=== PATIENT | female | born 1975 | race Caucasian/White ===

== ENCOUNTER 2020-03-25 18:56 | Emergency (ER) | payer MEDICAID, OTHER ==
[~2020-03-25] VITALS: Ht 160 cm; Wt 72.6 kg
[2020-03-25 19:00] VITALS: BP 132/84
--- NOTE | 2020-03-25 19:18 | NUR ---
PT TAKEN TO BED 11
--- NOTE | 2020-03-25 19:24 | NUR ---
PT COMING IN TODAY WITH COMPLAINT OF HEADACHE TODAY, HEADACHE IS GONE NOW BUT CURRENTLY HAS TINGLING TO HER FACE. + NAUSEA NO VOMITING. A/O X4, PUPILS EQUAL AND REACTIVE, ABLE TO AMBULATE WITH STEADY GAIT. PT STATES HX OF MIGRAINES. BED IN LOOWEST POSITION AND SIDE RAIL UP X 1. NKA MEDS - VICODIN HX - MIGRAINES
[2020-03-25] MEDS ORDERED: hydrOXYzine PAMOATE 25 MG CAP PO ONE (19:35)
[2020-03-25] MEDS ORDERED: hydrOXYzine HCL 25 MG TAB ONE (19:40)
[2020-03-25] MEDS ORDERED: hydrOXYzine HCL 25 MG TAB PO STA (19:43)
[2020-03-25 19:56] VITALS: BP 132/84
--- NOTE | 2020-03-25 19:56 | NUR ---
Patient discharged with v/s stable. Written and verbal after care instructions given and explained. Patient alert, oriented and verbalized understanding of instructions. Ambulatory with steady gait. All questions addressed prior to discharge. ID band removed. Patient advised to follow up with PMD. Rx of HYDROXIZINE given. Patient educated on indication of medication including possible reaction and side effects. Opportunity to ask questions provided and answered.
== END 2020-03-25 19:56 | disposition home or self-care (01) ==
LOC: MED 18:56
DX: F41.9 Anxiety disorder, unspecified (principal); G43.909 Migraine, unspecified, not intractable, without status migrainosus; Z88.6 Allergy status to analgesic agent
CPT/HCPCS: 99283; Q0177

== ENCOUNTER 2020-04-13 10:48 | Emergency (ER) | payer MEDICAID ==
[~2020-04-13] VITALS: Ht 160 cm; Wt 73.5 kg
--- NOTE | 2020-04-13 10:58 | NUR ---
PT AMBULATE TO BED 12 WITH STEADY GAIT
--- NOTE | 2020-04-13 10:59 | NUR ---
1 WEEK PT FELT FACIAL NUMBNESS STARTING AT PRE ORBITAL AREA .PT AOX 4 , AFIBRILE , AMBULATORY WITH STEADY GAIT. NEGATIVE FACIAL ASSYMETRY. PMHX UNREMARKABLE.
--- NOTE | 2020-04-13 11:00 | NUR ---
DR JIMENEZ AT BEDSIDE EVALUATING PT.
[2020-04-13 11:02] VITALS: BP 154/59
[2020-04-13 11:27] VITALS: BP 154/59
--- NOTE | 2020-04-13 11:27 | NUR ---
Patient discharged with v/s stable. Written and verbal after care instructions given and explained regarding anxiety. Patient alert, oriented and verbalized understanding of instructions. Ambulatory with steady gait. All questions addressed prior to discharge. ID band removed. Patient advised to follow up with PMD. Rx of atarax given. Patient educated on indication of medication including possible reaction and side effects. Opportunity to ask questions provided and answered.
== END 2020-04-13 11:27 | disposition home or self-care (01) ==
LOC: MED 10:48
DX: F41.9 Anxiety disorder, unspecified (principal); Z88.5 Allergy status to narcotic agent; Z88.6 Allergy status to analgesic agent
CPT/HCPCS: 99283

== ENCOUNTER 2020-09-04 13:52 | Emergency (ER) | payer MEDICAID, OTHER ==
[~2020-09-04] VITALS: Ht 160 cm; Wt 71.2 kg
[2020-09-04 14:02] VITALS: BP 124/76
--- NOTE | 2020-09-04 14:10 | NUR ---
Pt ambulated to ER bed 4.
--- NOTE | 2020-09-04 14:17 | NUR ---
45 y/o female c/o right ear pain 5/10 throbbing constant X1day, pt states feels "plugged". PT c/o left breast burning pain 7/10 radiating to lymph nodes and back. Pt states she vomited 1 time 2 days ago after taking pepto. Denies fever/chills, N/V/D currently. PMH: Hpylori, left sided lymph nodes infection RX: Flagyl, tetracycline Allergies to vicodin
--- NOTE | 2020-09-04 14:48 | NUR ---
Dr. Hardin at the pt bedside for evaluation.
--- NOTE | 2020-09-04 15:02 | NUR ---
Female [employer] Underwriter accompanied female patient for Breast/lymph nodes Exam.
[2020-09-04 15:18] VITALS: BP 124/76
--- NOTE | 2020-09-04 15:20 | NUR ---
Patient discharged with v/s stable. Written and verbal after care instructions given and explained. Patient verbalized understanding. Ambulatory with steady gait. All questions addressed prior to discharge. Advised to follow up with PMD.
== END 2020-09-04 15:20 | disposition home or self-care (01) ==
LOC: MED 13:52
DX: H92.01 Otalgia, right ear (principal); L30.9 Dermatitis, unspecified; Z88.5 Allergy status to narcotic agent; Z88.6 Allergy status to analgesic agent
CPT/HCPCS: 99281

== ENCOUNTER 2022-02-09 18:21 | Emergency (ER) | payer OTHER ==
[~2022-02-09] VITALS: Ht 160 cm; Wt 70.5 kg
[2022-02-09 18:29] VITALS: BP 125/90
[2022-02-09] MEDS ORDERED: CEPH-588 PO (20:19)
[2022-02-09 20:30] VITALS: BP 125/90
== END 2022-02-09 20:30 | disposition home or self-care (01) ==
LOC: MED 18:21
DX: N39.0 Urinary tract infection, site not specified (principal); Z98.51 Tubal ligation status
CPT/HCPCS: 81002; 81025; 99283

== ENCOUNTER 2022-03-23 04:52 | Emergency (ER) | payer OTHER ==
[~2022-03-23] VITALS: Ht 160 cm; Wt 70.3 kg
[~2022-03-23 04:52] MED LIST: CEPH-588 PO
[2022-03-23 05:01] VITALS: BP 139/84
--- NOTE | 2022-03-23 05:10 | NUR ---
pt ambulatory to bed 03 Addendum: 03/23/22 at 0511 by [facility] pt to bed .
--- NOTE | 2022-03-23 05:11 | NUR ---
PT TAKEN TO BED 7
--- NOTE | 2022-03-23 05:29 | NUR ---
47 Y/O F BIB SELF FOR EPIGASTRIC PAIN/ HEADACHE PAIN PAIN 12/24. PT C/O NAUSEA. DENIES N/F/V/D/CHEST PAIN/ SOB. PT HAS BEEN TAKING ZOFRAN AND OMEPRAZOLE. PT STATES SHE HAD H.PYLORI A FEW YEARS AGO. PT STATES SHES BEEN CONSTIPATED AND GASSY AAOX4 WITH EVEN AND STEADY GAIT; LUNGS CLEAR BL; HR EVEN AND REGULAR; ALLERGIES: NKA
[2022-03-23] MEDS ORDERED: ALUMINUM HYD/MAG/SIMETHICONE 30 ML UDC PO ONE (05:50)
[2022-03-23] MEDS ORDERED: DICYCLOMINE 10 MG CAP PO ONE (05:50)
[2022-03-23 06:28] LABS: BASOPHILS % (AUTO) 0.5 % (0.0-2.0); EOSINOPHILS # (AUTO) 0.1 K/uL (0-0.4); EOSINOPHILS % (AUTO) 1.2 % (0.0-4.0); HEMATOCRIT 37.9 % (36-48); HEMOGLOBIN 12.6 g/dL (12.0-16.0); LYMPHOCYTES # (AUTO) 1.8 K/uL (2.5-16.5); LYMPHOCYTES % (AUTO) 22.4 % (20.5-51.1); MEAN CORPUSCULAR HEMOGLOBIN 29 pg (27-31); MEAN CORPUSCULAR HGB CONC 33 g/dL (33-37); MEAN CORPUSCULAR VOLUME 88.2 fL (80-94); MONOCYTES # (AUTO) 0.7 K/uL (0.8-1.0); MONOCYTES % (AUTO) 8.4 % (1.7-9.3); NEUTROPHILS # (AUTO) 5.3 K/uL (1.8-7.7); NEUTROPHILS % (AUTO) 67.5 % (42.2-75.2); PLATELET COUNT (AUTO) 287 K/uL (140-450); RED BLOOD CELL COUNT(AUTO) 4.29 MIL/uL (4.20-5.40); RED CELL DISTRIBUTION WIDTH 13.2 % (11.6-13.7); WHITE BLOOD COUNT (AUTO) 7.9 K/uL (4.8-10.8)
[2022-03-23 06:44] LABS: ALBUMIN 3.6 g/dL (3.4-5.0); ANION GAP 9.9 (8-16); CARBON DIOXIDE 27.9 mmol/L (21-32); CREATININE 0.9 mg/dL (0.6-1.3); POTASSIUM 3.8 mmol/L (3.5-5.1); TOTAL BILIRUBIN 0.5 mg/dL (0.0-1.0)
[2022-03-23 07:10] VITALS: BP 140/85
--- NOTE | 2022-03-23 07:15 | NUR ---
RECEIVED REPORT FROM ANJUM MANDEL FOR TRANSFER OF CARE.
--- NOTE | 2022-03-23 07:45 | NUR ---
DR. APPIAH RE-EVALUATING PATIENT AT BEDSIDE.
--- NOTE | 2022-03-23 07:45 | NUR ---
Pt report given to JOSE. RN. Transfer of care at this time.
[2022-03-23] MEDS ORDERED: BEN10 PO (08:01)
--- NOTE | 2022-03-23 08:03 | NUR ---
Patient discharged with v/s stable. Written and verbal after care instructions given. Patient alert, oriented and verbalized understanding of instructions. Ambulatory with steady gait. All questions addressed prior to discharge. ID band removed. Patient advised to follow up with PMD. Rx of BENTYL given. Opportunity to ask questions provided and answered.
--- NOTE | 2022-03-23 08:05 | NUR ---
The patient's care was reviewed and supervised by Tianna De Leon RN.
== END 2022-03-23 08:05 | disposition home or self-care (01) ==
LOC: MED 04:52
DX: R10.13 Epigastric pain (principal); R51.9 Headache, unspecified; R11.2 Nausea with vomiting, unspecified; F41.9 Anxiety disorder, unspecified; Z88.5 Allergy status to narcotic agent; Z88.6 Allergy status to analgesic agent; Z79.899 Other long term (current) drug therapy
CPT/HCPCS: 36415; 76705; 80053; 81002; 81025; 83690; 85025; 99284; Q0092

== ENCOUNTER 2022-03-29 04:15 | Emergency (ER) | payer OTHER ==
[~2022-03-29] VITALS: Ht 160 cm; Wt 70.3 kg
[~2022-03-29 04:15] MED LIST changes: +BEN10 PO
[2022-03-29 04:26] VITALS: BP 116/62
--- NOTE | 2022-03-29 04:35 | NUR ---
Patient ambulated to bed 4.
--- NOTE | 2022-03-29 04:40 | NUR ---
Patient BIB by family from home. C/O Epigastric pain x 1 week. Patient reported, epigastric pain for a week, upper back pain x 3 weeks, no injury, right ear itchy x 1 week, Dizziness and headache everyday.
--- NOTE | 2022-03-29 04:47 | NUR ---
Dr. Sarmiento examining patient.
[2022-03-29] MEDS ORDERED: KETOROLAC 30 MG/ML VIAL IVP ONE (04:55)
[2022-03-29] MEDS ORDERED: ONDANSETRON 4 MG/2 ML VIAL IVP ONE (04:55)
[2022-03-29] MEDS ORDERED: NACL 0.9% 1,000 ML IV ONE (04:55)
[2022-03-29 05:17] LABS: BASOPHILS # (AUTO) 0.1 K/uL (0.00-0.22); BASOPHILS % (AUTO) 0.8 % (0.0-2.0); EOSINOPHILS # (AUTO) 0.1 K/uL (0-0.4); EOSINOPHILS % (AUTO) 1.6 % (0.0-4.0); HEMATOCRIT 38.4 % (36-48); HEMOGLOBIN 12.8 g/dL (12.0-16.0); LYMPHOCYTES # (AUTO) 1.9 K/uL (2.5-16.5); LYMPHOCYTES % (AUTO) 22.2 % (20.5-51.1); MEAN CORPUSCULAR HEMOGLOBIN 30 pg (27-31); MEAN CORPUSCULAR HGB CONC 33 g/dL (33-37); MEAN CORPUSCULAR VOLUME 89.3 fL (80-94); MONOCYTES # (AUTO) 0.7 K/uL (0.8-1.0); NEUTROPHILS # (AUTO) 5.9 K/uL (1.8-7.7); NEUTROPHILS % (AUTO) 67.4 % (42.2-75.2); PLATELET COUNT (AUTO) 277 K/uL (140-450); RED CELL DISTRIBUTION WIDTH 13.4 % (11.6-13.7); WHITE BLOOD COUNT (AUTO) 8.7 K/uL (4.8-10.8)
[2022-03-29 05:26] LABS: ALBUMIN 3.7 g/dL (3.4-5.0); ANION GAP 10.7 (8-16); CARBON DIOXIDE 27.4 mmol/L (21-32); POTASSIUM 4.1 mmol/L (3.5-5.1); TOTAL BILIRUBIN 0.4 mg/dL (0.0-1.0)
[2022-03-29] MEDS ORDERED: IBUP-2213 PO (06:12)
[2022-03-29 06:40] VITALS: BP 122/71
--- NOTE | 2022-03-29 06:40 | NUR ---
Patient discharged with v/s stable. Written and verbal after care instructions given and explained for cholecystitis. Patient alert, oriented and verbalized understanding of instructions. Ambulatory with steady gait. All questions addressed prior to discharge. ID band removed. Patient advised to follow up with PMD. Rx of Ibuprofen given. Patient educated on indication of medication including possible reaction and side effects. Opportunity to ask questions provided and answered.
== END 2022-03-29 06:40 | disposition home or self-care (01) ==
LOC: MED 04:15
DX: K80.20 Calculus of gallbladder without cholecystitis without obstruction (principal); R10.84 Generalized abdominal pain; F41.9 Anxiety disorder, unspecified; M54.6 Pain in thoracic spine; R42 Dizziness and giddiness; Z88.6 Allergy status to analgesic agent; Z79.891 Long term (current) use of opiate analgesic; Z98.51 Tubal ligation status
CPT/HCPCS: 36415; 76705; 80053; 81002; 81025; 83690; 85025; 96361; 96374; 96375; 99284; J1885; J2405; J7030; Q0092